=== PATIENT | female | born 1965 | race Caucasian/White ===

== ENCOUNTER 2020-01-06 13:29 | Day surgery (SDC) | payer OTHER ==
[2020-01-06] MEDS ORDERED: SODIUM CHLORIDE 0.9% 1000 ML INFUS.BAG IV ONE ×2 (13:35→14:49)
[2020-01-06] MEDS ORDERED: ONDANSETRON 4 MG/2 ML VIAL IVPUSH ONE (13:36)
[2020-01-06] MEDS ORDERED: KETOROLAC TROMETHAMINE 30 MG/1 ML VIAL IVPUSH ONE (13:36)
[2020-01-06] MEDS ORDERED: KETOROLAC TROMETHAMINE 30 MG/1 ML VIAL ONE (13:46)
[2020-01-06] MEDS ORDERED: ONDANSETRON 4 MG/2 ML VIAL ONE (13:46)
--- NOTE | 2020-01-06 13:50 | PDOC ---
History of Present Illness - General Chief Complaint: Back Pain Stated Complaint: BACK PAIN Time Seen by Provider: 01/06/20 13:33 - History of Present Illness Initial Comments: 01/06/20 13:52 54 yo F PMH recurrent kidney stones s/p parathyroidectomy, R oopherectomy 2/2 benign cyst, presenting with L flank pain. States that it began last night and has gotten progessively worse and sharper, now 10/10. Associated with two episodes of emesis today and ongoing nausea. Denies fevers/chills, urinary symptoms, CP, SOB, FIGUEROA. PCP is Dr. Allison. Past History - Past Medical History Allergies/Adverse Reactions: Allergies Allergy/AdvReac Type Severity Reaction Status Date / Time No Known Allergies Allergy Verified 01/06/20 13:32 Home Medications: Ambulatory Orders NK [No Known Home Medication] 01/06/20 COPD: No Kidney Stones: Yes - Psycho Social/Smoking Cessation Hx Smoking History: Never smoked Have you smoked in the past 12 months: No Information on smoking cessation initiated: No Hx Alcohol Use: No Review of Systems - Review of Systems Comments:: 01/06/20 15:19 GENERAL/CONSTITUTIONAL: denies fever, chills, diaphoresis, generalized weakness , malaise, loss of appetite, weight change HEAD, EYES, EARS, NOSE AND THROAT: denies rhinorrhea, nasal congestion, throat pain, throat swelling, difficulty swallowing, mouth swelling, ear pain, eye pain , visual changes NEUROLOGIC: denies headache, focal weakness or paresthesias, dizziness, unsteady gait, seizure, mental status changes, bladder or bowel incontinence CARDIOVASCULAR: denies chest pain, syncope, palpitations, irregular heart rate, lightheadedness, peripheral edema RESPIRATORY: denies cough, shortness of breath, dyspnea with exertion, orthopnea , wheezing, stridor, hemoptysis GASTROINTESTINAL: endorses LLQ abdominal pain, L flank pain, nausea with vomiting. Denies abdominal distension, diarrhea, constipation, melena, hematochezia GENITOURINARY: denies dysuria, frequency, urgency, hesitancy, hematuria, flank pain, genital pain MUSCULOSKELETAL: denies myalgia, arthralgia, joint swelling, back pain, neck pain SKIN: denies rash, itching, pallor HEMATOLOGIC/IMMUNOLOGIC: denies easy bleeding, easy bruising, lymphadenopathy, frequent infections ENDOCRINE: denies unexplained weight gain, unexplained weight loss, heat intolerance, cold intolerance PSYCHIATRIC: denies anxiety, depression, suicidal or homicidal ideation, hallucinations *Physical Exam - Vital Signs Last Vital Signs Temp Pulse Resp BP Pulse Ox 98.3 F 79 18 184/107 H 98 01/06/20 13:30 01/06/20 13:30 01/06/20 13:30 01/06/20 13:30 01/06/20 13:30 - Physical Exam 01/06/20 15:20 GENERAL: Awake, alert, and fully oriented, appears uncomfortable. HEAD: Normal with no signs of trauma. EYES: Pupils equal, round and reactive to light, extraocular movements intact, sclera anicteric, conjunctiva clear. No lid lag. EARS, NOSE, THROAT: Ears normal, nares patent, oropharynx clear without exudates. Dry mucous membranes. NECK: Normal range of motion, supple without lymphadenopathy or JVD LUNGS: Breath sounds equal, clear to auscultation bilaterally. No wheezes, and no crackles. No accessory muscle use. HEART: Regular rate and rhythm, normal S1 and S2 without murmur, rub or gallop. ABDOMEN: Soft, LLQ tenderness, non-distended, normoactive bowel sounds, negative guarding, negative rebound MUSCULOSKELETAL: Normal range of motion at all joints. No bony deformities or tenderness. L CVA tenderness. UPPER EXTREMITIES: 2+ pulses, warm, well-perfused. No cyanosis. No clubbing. Cap refill <2 seconds. No peripheral edema. LOWER EXTREMITIES: 2+ pulses, warm, well-perfused. No calf tenderness. No peripheral edema. NEUROLOGICAL: Cranial nerves II-XII intact. Normal speech. Normal gait. PSYCHIATRIC: Cooperative. Good eye contact. Appropriate mood and affect. SKIN: Warm, dry, normal turgor, no rashes or lesions noted. ED Treatment Course - LABORATORY CBC & Chemistry Diagram: 01/06/20 14:00 01/06/20 14:00 Medical Decision Making - Medical Decision Making 01/06/20 14:45 Concern for kidney stones vs UTI. - CBC, CMP - UA/UC/urine preg - CT abd/pelvis w/o contrast - 1L NS - toradol, Zofran 01/06/20 14:46 WBC 16.8, UA with 4+ ketones, 3+ blood, 1+ protein 01/06/20 14:48 CT with 5 X 8mm L proximal ureteral stone with mild to moderate hydronephrosis. Discussed patient with Dr. Overton from urology, recommends admitting patient to [facility] for stent tomorrow. 01/06/20 16:00 Pre-op EKG with normal sinus at 77 bpm. Discharge - Discharge Information Problems reviewed: Yes Clinical Impression/Diagnosis: Kidney stone on left side Condition: Stable - Admission Yes - Follow up/Referral - Patient Discharge Instructions - Post Discharge Activity
[2020-01-06 14:16] LABS: HEMATOCRIT 43.5 % (32.4-45.2); HEMOGLOBIN 14.6 GM/dl (10.7-15.3); MCH 30.5 pg (25.7-33.7); MCHC 33.6 g/dl (32.0-36.0); MEAN CELL VOLUME 90.7 fl (80-96); MEAN PLT VOLUME 9.6 fl (7.5-11.1); PLATELET COUNT 371 K/MM3 (134-434); WHITE BLOOD COUNT 16.8 K/mm3 (4.0-10.8)
[2020-01-06 14:26] LABS: ALBUMIN 4.1 g/dl (3.4-5.0); BILIRUBIN,TOTAL 0.6 mg/dl (0.2-1); POTASSIUM 3.5 mmol/L (3.5-5.1); TOT PROT 7.4 g/dl (6.4-8.2)
[2020-01-06 14:29] LABS: CALCIUM OXALATE CRYSTALS FEW /hpf (NONE SEEN); EPITHELIAL CELLS FEW /hpf
[2020-01-06 14:35] LABS: PLATELET ESTIMATE ADEQUATE
[2020-01-06] MEDS ORDERED: morphine CARPU-JECT 4 MG/1 ML DISP.SYRIN IVPUSH ONE (14:48)
[2020-01-06] MEDS ORDERED: morphine SULFATE 4 MG/ML VIAL ONE (14:49)
[2020-01-06 15:38] LABS: ACTIVATED PTT 29.9 SECONDS (25.2-36.5)
[2020-01-06 15:43] LABS: INR 1.3 (0.82-1.09); PROTHROMBIN TIME (PATIENT) 14.5 SEC (10.2-13.0)
--- NOTE | 2020-01-06 16:14 | HP ---
CHIEF COMPLAINT: Left flank pain PCP: Dr. Allison HISTORY OF PRESENT ILLNESS: 54 year-old female with a PMH significant for kidney stones presented to the ED with left flank pain which started the night before presentation. The pain was moderate at onset, patient able to sleep and went to work the next morning. The pain intensified and patient had several episodes of vomiting prompting her to come to the ED. Patient had 4 episodes of kidney stones five years ago and underwent parathyroidectomy. This is her first episode since. ER course was notable for: (1) BP 184/107 (2) WBC 16.8k, urine RBCs 20-40 (3) NS x 2L; ketorolac 30mg x 1; morphine 4mg x 1; Zofran 4mg x 1 Recent Travel: No PAST MEDICAL HISTORY: Kidney stones PAST SURGICAL HISTORY: Parathyroidectomy x 5 years Right oopherectomy x 15 years Social History: high school home economics teacher, lives in [place] Smoking: never Alcohol: no Drugs: no Family history: mother 78 with HTN; father 74 with HTN; 2 sisters a&w, no children Allergies No Known Allergies Allergy (Verified 01/06/20 13:32) HOME MEDICATIONS: Home Medications Medication Instructions Recorded NK [No Known Home Medication] 01/06/20 REVIEW OF SYSTEMS CONSTITUTIONAL: Absent: fever, chills, diaphoresis, generalized weakness, malaise, loss of appetite, weight change HEENT: Absent: rhinorrhea, nasal congestion, throat pain, throat swelling, difficulty swallowing, mouth swelling, ear pain, eye pain, visual changes CARDIOVASCULAR: Absent: chest pain, syncope, palpitations, irregular heart rate, lightheadedness , peripheral edema RESPIRATORY: Absent: cough, shortness of breath, dyspnea with exertion, orthopnea, wheezing, stridor, hemoptysis GASTROINTESTINAL: Absent: abdominal pain, abdominal distension, nausea, vomiting, diarrhea, constipation, melena, hematochezia GENITOURINARY: +left flank pain, nausea, vomiting Absent: dysuria, frequency, urgency, hesitancy, hematuria, genital pain MUSCULOSKELETAL: Absent: myalgia, arthralgia, joint swelling, back pain, neck pain SKIN: Absent: rash, itching, pallor HEMATOLOGIC/IMMUNOLOGIC: Absent: easy bleeding, easy bruising, lymphadenopathy, frequent infections ENDOCRINE: Absent: unexplained weight gain, unexplained weight loss, heat intolerance, cold intolerance NEUROLOGIC: Absent: headache, focal weakness or paresthesias, dizziness, unsteady gait, seizure, mental status changes, bladder or bowel incontinence PSYCHIATRIC: Absent: anxiety, depression, suicidal or homicidal ideation, hallucinations. PHYSICAL EXAMINATION Vital Signs - 24 hr 01/06/20 01/06/20 13:30 15:16 Temperature 98.3 F Pulse Rate 79 Pulse Rate [ 86 Left Apical] Respiratory 18 18 Rate Blood Pressure 184/107 H Blood Pressure 143/87 [Right Arm] O2 Sat by Pulse 98 99 Oximetry (%) GENERAL: Awake, alert, and fully oriented, in no acute distress. LUNGS: Breath sounds equal, clear to auscultation bilaterally. No wheezes, and no crackles. No accessory muscle use. HEART: Regular rate and rhythm, normal S1 and S2 ABDOMEN: Soft, nontender, not distended, normoactive bowel sounds UPPER EXTREMITIES: 2+ pulses, warm, well-perfused. No cyanosis. No clubbing. No peripheral edema. LOWER EXTREMITIES: 2+ pulses, warm, well-perfused. No calf tenderness. No peripheral edema. NEUROLOGICAL: Cranial nerves II-XII intact. Normal speech. Laboratory Results - last 24 hr 01/06/20 01/06/20 01/06/20 13:35 14:00 14:00 WBC 16.8 H RBC 4.80 Hgb 14.6 Hct 43.5 MCV 90.7 MCH 30.5 MCHC 33.6 RDW 12.0 Plt Count 371 MPV 9.6 Absolute Neuts (auto) 15.4 Neutrophils % No Result Required. Neutrophils % (Manual) 86.0 H Band Neutrophils % 4.0 Lymphocytes % No Result Required. Lymphocytes % (Manual) 7.0 L Monocytes % (Manual) 3 L Platelet Estimate Adequate PT with INR INR PTT (Actin FS) Sodium 135 L Potassium 3.5 Chloride 100 Carbon Dioxide 27 Anion Gap 8 BUN 13.0 Creatinine 1.0 Est GFR (CKD-EPI)AfAm 75.01 Est GFR (CKD-EPI)NonAf 64.72 Random Glucose 117 H Calcium 9.0 Total Bilirubin 0.6 AST 31 ALT 19 Alkaline Phosphatase 121 H Total Protein 7.4 Albumin 4.1 Urine Color Yellow Urine Appearance Clear Urine pH 7.0 Urine Protein 1+ H Urine Glucose (UA) Negative Urine Ketones 4+ H Urine Blood 3+ H Urine Nitrite Negative Urine Bilirubin Negative Urine Urobilinogen 0.2 Ur Leukocyte Esterase Negative Urine RBC 20-40 Urine WBC 0-2 Ur Transition Epith Cell Few Calcium Oxalate Crystal Few Urine Bacteria Few 01/06/20 15:10 WBC RBC Hgb Hct MCV MCH MCHC RDW Plt Count MPV Absolute Neuts (auto) Neutrophils % Neutrophils % (Manual) Band Neutrophils % Lymphocytes % Lymphocytes % (Manual) Monocytes % (Manual) Platelet Estimate PT with INR 14.5 H INR 1.30 H PTT (Actin FS) 29.9 Sodium Potassium Chloride Carbon Dioxide Anion Gap BUN Creatinine Est GFR (CKD-EPI)AfAm Est GFR (CKD-EPI)NonAf Random Glucose Calcium Total Bilirubin AST ALT Alkaline Phosphatase Total Protein Albumin Urine Color Urine Appearance Urine pH Urine Protein Urine Glucose (UA) Urine Ketones Urine Blood Urine Nitrite Urine Bilirubin Urine Urobilinogen Ur Leukocyte Esterase Urine RBC Urine WBC Ur Transition Epith Cell Calcium Oxalate Crystal Urine Bacteria ASSESSMENT/PLAN 54 year-old female with a PMH significant for kidney stones admitted for an obstructing left ureteral stone and hydronephrosis. Left ureteral obstructing caculi Left hydronephrosis --CTAP: 5 x 8 mm proximal left ureteral calculus with mild to moderate hydronephrosis --plan is to [place] tomorrow for stenting with Dr. Overton --afebrile, elevated WBC but UA negative, start empiric ceftriaxone --IV fluids, NPO Dispo: continues to require inpatient care. Visit type - Emergency Visit Emergency Visit: Yes ED Registration Date: 01/06/20 Care time: The patient presented to the Emergency Department on the above date and was hospitalized for further evaluation of their emergent condition. - New Patient This patient is new to me today: Yes Date on this admission: 01/07/20 - Critical Care Critical Care patient: No
--- NOTE | 2020-01-06 17:24 | CON.GU ---
Consult Consult Specialty:: Referred by:: Peter Reason for Consultation:: L ureteral calculus - History of Present Illness Chief Complaint: L flank pain History of Present Illness: 54 yo F PMH recurrent kidney stones s/p parathyroidectomy, R oopherectomy 2/2 benign cyst, presenting with L flank pain. States that it began last night and has gotten progessively worse and sharper, now 10/10. Associated with two episodes of emesis today and ongoing nausea. cons req. ER course was notable for: (1) BP 184/107 (2) WBC 16.8k, urine RBCs 20-40 (3) NS x 2L; ketorolac 30mg x 1; morphine 4mg x 1; Zofran 4mg x 1 - History Source History Provided By: Patient, Medical Record Limitations to Obtaining History: No Limitations - Past Medical History Renal/: Yes: Renal Calculi - Alcohol/Substance Use Hx Alcohol Use: No - Smoking History Smoking history: Never smoked Have you smoked in the past 12 months: No Home Medications - Allergies Allergies/Adverse Reactions: Allergies Allergy/AdvReac Type Severity Reaction Status Date / Time No Known Allergies Allergy Verified 01/06/20 13:32 - Home Medications Home Medications: Ambulatory Orders NK [No Known Home Medication] 01/06/20 Review of Systems - Review of Systems Gastrointestinal: reports: Nausea, Vomiting Genitourinary: reports: Flank Pain Physical Exam- Vital Signs: Vital Signs Temperature 97.8 F 01/06/20 17:06 Pulse Rate 80 01/06/20 17:06 Respiratory Rate 18 01/06/20 17:06 Blood Pressure 136/86 01/06/20 17:06 O2 Sat by Pulse Oximetry (%) 98 01/06/20 17:06 Renal/: Yes: CVA Tenderness - Left Labs: CBC, BMP 01/06/20 14:00 01/06/20 14:00 Imaging - Results Cat Scan: Report Reviewed Problem List - Problems (1) Ureteral calculus, left Assessment/Plan: rx tamsulosin 0.4 mg qd, strain urine, ivfs, analgesia, ur cx, iv rocephin, cysto L JJ stent insertion 01/07/20 Code(s): N20.1 - CALCULUS OF URETER (2) Hydronephrosis with renal and ureteral calculous obstruction Code(s): N13.2 - HYDRONEPHROSIS WITH RENAL AND URETERAL CALCULOUS OBSTRUCTION (3) Leukocytosis Code(s): D72.829 - ELEVATED WHITE BLOOD CELL COUNT, UNSPECIFIED
[2020-01-06 18:28] VITALS: BMI 28.3
[2020-01-06] MEDS: SODIUM CHLORIDE 1,000 ML IV SCH (18:56)
[2020-01-06] MEDS ORDERED: morphine CARPU-JECT 2 MG/1 ML DISP.SYRIN IVPUSH PRN (20:59)
[2020-01-06] MEDS: ACETAMINOPHEN 1000 MG/100 ML VIAL (NON FORMULARY) IVPB SCH (21:10)
[2020-01-07] MEDS: ACETAMINOPHEN 1000 MG/100 ML VIAL (NON FORMULARY) IVPB SCH ×3 (03:54→17:56)
[2020-01-07 07:49] LABS: BASO % 0.3 % (0-2.0); EOS % 0.1 % (0-4.5); HEMATOCRIT 37.9 % (32.4-45.2); HEMOGLOBIN 13.2 GM/dl (10.7-15.3); MCH 31.7 pg (25.7-33.7); MCHC 34.7 g/dl (32.0-36.0); MEAN CELL VOLUME 91.2 fl (80-96); MEAN PLT VOLUME 10.1 fl (7.5-11.1); MONO % 10.3 % (3.8-10.2); NEUT % 71.3 % (42.8-82.8); PLATELET COUNT 327 K/MM3 (134-434); RBC 4.16 M/mm3 (3.60-5.2); RDW 12.5 % (11.6-15.6); WHITE BLOOD COUNT 14.8 K/mm3 (4.0-10.8)
[2020-01-07 07:50] LABS: ALBUMIN 3.2 g/dl (3.4-5.0); BILIRUBIN,TOTAL 0.9 mg/dl (0.2-1); CALCIUM 8.8 mg/dl (8.5-10); CREATININE 1.1 mg/dl (0.55-1.3); MAGNESIUM 1.6 mg/dL (1.8-2.4); POTASSIUM 3.7 mmol/L (3.5-5.1); TOT PROT 5.9 g/dl (6.4-8.2)
[2020-01-07] MEDS: TAMSULOSIN HCL 0.4 MG CAP PO SCH (08:05)
[2020-01-07] MEDS ORDERED: MAGNESIUM SULF 50% (8.12 MEQ/2 ML-1 GM VIAL) IVPB ONE (09:30)
[2020-01-07] MEDS ORDERED: CEFTRIAXONE 1 G/50 ML PREMIX 50 ML IVPB SCH (10:00)
--- NOTE | 2020-01-07 11:29 | EKG ---
Test Reason : Blood Pressure : / mmHG Vent. Rate : 077 BPM Atrial Rate : 077 BPM P-R Int : 126 ms QRS Dur : 074 ms QT Int : 412 ms P-R-T Axes : 068 071 055 degrees QTc Int : 466 ms NORMAL SINUS RHYTHM LEFT ATRIAL ENLARGEMENT BORDERLINE ECG NO PREVIOUS ECGS AVAILABLE Confirmed by MD ROMAIN, LAUREN ([id number]) on 01/07/2020 11:29:16 AM Referred By: DR HEMPHILL Confirmed By:LAUREN HOYOS MD
[2020-01-07] MEDS ORDERED: MIDAZOLAM HCL 2 MG/2 ML SINGLE DOSE VIAL ONE (12:39)
[2020-01-07] MEDS ORDERED: PROPOFOL 20 ML ONE (12:39)
--- NOTE | 2020-01-07 13:11 | PN ---
Physical Exam: SUBJECTIVE: Patient seen and examined OBJECTIVE: Vital Signs Period Temp Pulse Resp BP Sys/Taveras Pulse Ox Last 24 Hr 97.8 F-98.6 F 79-86 18-19 124-184/66-107 97-99 GENERAL: The patient is awake, alert, and fully oriented, in no acute distress. HEAD: Normal with no signs of trauma. EYES: PERRL, extraocular movements intact, sclera anicteric, conjunctiva clear. No ptosis. ENT: Ears normal, nares patent, oropharynx clear without exudates, moist mucous membranes. NECK: Trachea midline, full range of motion, supple. LUNGS: Breath sounds equal, clear to auscultation bilaterally, no wheezes, no crackles, no accessory muscle use. HEART: Regular rate and rhythm, S1, S2 without murmur, rub or gallop. ABDOMEN: Soft, nontender, nondistended, normoactive bowel sounds, no guarding, no rebound, no hepatosplenomegaly, no masses. EXTREMITIES: 2+ pulses, warm, well-perfused, no edema. NEUROLOGICAL: Cranial nerves II through XII grossly intact. Normal speech, gait not observed. PSYCH: Normal mood, normal affect. SKIN: Warm, dry, normal turgor, no rashes or lesions noted Laboratory Results - last 24 hr 01/06/20 01/06/20 01/06/20 13:35 14:00 14:00 WBC 16.8 H RBC 4.80 Hgb 14.6 Hct 43.5 MCV 90.7 MCH 30.5 MCHC 33.6 RDW 12.0 Plt Count 371 MPV 9.6 Absolute Neuts (auto) 15.4 Neutrophils % No Result Required. Neutrophils % (Manual) 86.0 H Band Neutrophils % 4.0 Lymphocytes % No Result Required. Lymphocytes % (Manual) 7.0 L Monocytes % Monocytes % (Manual) 3 L Eosinophils % Basophils % Platelet Estimate Adequate PT with INR INR PTT (Actin FS) Sodium 135 L Potassium 3.5 Chloride 100 Carbon Dioxide 27 Anion Gap 8 BUN 13.0 Creatinine 1.0 Est GFR (CKD-EPI)AfAm 75.01 Est GFR (CKD-EPI)NonAf 64.72 Random Glucose 117 H Calcium 9.0 Magnesium Total Bilirubin 0.6 AST 31 ALT 19 Alkaline Phosphatase 121 H Total Protein 7.4 Albumin 4.1 Urine Color Yellow Urine Appearance Clear Urine pH 7.0 Urine Protein 1+ H Urine Glucose (UA) Negative Urine Ketones 4+ H Urine Blood 3+ H Urine Nitrite Negative Urine Bilirubin Negative Urine Urobilinogen 0.2 Ur Leukocyte Esterase Negative Urine RBC 20-40 Urine WBC 0-2 Ur Transition Epith Cell Few Calcium Oxalate Crystal Few Urine Bacteria Few Blood Type Antibody Screen 01/06/20 01/06/20 01/06/20 15:10 15:10 15:20 WBC RBC Hgb Hct MCV MCH MCHC RDW Plt Count MPV Absolute Neuts (auto) Neutrophils % Neutrophils % (Manual) Band Neutrophils % Lymphocytes % Lymphocytes % (Manual) Monocytes % Monocytes % (Manual) Eosinophils % Basophils % Platelet Estimate PT with INR 14.5 H INR 1.30 H PTT (Actin FS) 29.9 Sodium Potassium Chloride Carbon Dioxide Anion Gap BUN Creatinine Est GFR (CKD-EPI)AfAm Est GFR (CKD-EPI)NonAf Random Glucose Calcium Magnesium Total Bilirubin AST ALT Alkaline Phosphatase Total Protein Albumin Urine Color Urine Appearance Urine pH Urine Protein Urine Glucose (UA) Urine Ketones Urine Blood Urine Nitrite Urine Bilirubin Urine Urobilinogen Ur Leukocyte Esterase Urine RBC Urine WBC Ur Transition Epith Cell Calcium Oxalate Crystal Urine Bacteria Blood Type O POSITIVE O POSITIVE Antibody Screen Negative 01/07/20 01/07/20 06:50 06:50 WBC 14.8 H RBC 4.16 Hgb 13.2 Hct 37.9 MCV 91.2 MCH 31.7 MCHC 34.7 RDW 12.5 Plt Count 327 MPV 10.1 Absolute Neuts (auto) 10.6 Neutrophils % 71.3 Neutrophils % (Manual) Band Neutrophils % Lymphocytes % 18.0 Lymphocytes % (Manual) Monocytes % 10.3 H Monocytes % (Manual) Eosinophils % 0.1 Basophils % 0.3 Platelet Estimate PT with INR INR PTT (Actin FS) Sodium 137 Potassium 3.7 Chloride 104 Carbon Dioxide 25 Anion Gap 8 BUN 13.0 Creatinine 1.1 Est GFR (CKD-EPI)AfAm 66.85 Est GFR (CKD-EPI)NonAf 57.68 Random Glucose 102 Calcium 8.8 Magnesium 1.6 L Total Bilirubin 0.9 AST 27 ALT 14 Alkaline Phosphatase 97 D Total Protein 5.9 L Albumin 3.2 L Urine Color Urine Appearance Urine pH Urine Protein Urine Glucose (UA) Urine Ketones Urine Blood Urine Nitrite Urine Bilirubin Urine Urobilinogen Ur Leukocyte Esterase Urine RBC Urine WBC Ur Transition Epith Cell Calcium Oxalate Crystal Urine Bacteria Blood Type Antibody Screen Active Medications Generic Name Dose Route Start Last Admin Trade Name Freq PRN Reason Stop Dose Admin Acetaminophen 1,000 mg 01/06/20 21:00 01/07/20 10:27 Ofirmev Injection - IVPB 01/07/20 15:01 1,000 mg Q6H ALICE Administration Sodium Chloride 1,000 mls @ 100 mls/hr 01/06/20 17:45 01/06/20 18:56 Normal Saline - IV 100 mls/hr ASDIR ALICE Administration Ceftriaxone Sodium 50 mls @ 100 mls/hr 01/07/20 10:00 01/07/20 09:00 Ceftriaxone 1 Gm-D5w Bag IVPB 100 mls/hr DAILY ALICE Administration Protocol Morphine Sulfate 2 mg 01/06/20 20:59 01/07/20 00:19 Morphine Injection - IVPUSH 2 mg Q4H PRN Administration PAIN LEVEL 7 - 10 Tamsulosin HCl 0.4 mg 01/07/20 08:30 01/07/20 08:05 Flomax - PO 0.4 mg DAILY@0830 ALICE Administration ASSESSMENT/PLAN: 54 year-old female with a PMH significant for kidney stones admitted for an obstructing left ureteral stone and hydronephrosis. Left ureteral obstructing caculi Left hydronephrosis --CTAP: 5 x 8 mm proximal left ureteral calculus with mild to moderate hydronephrosis --plan is to [place] today for stenting with Dr. Overton --continue empiric ceftriaxone --IV fluids, NPO Dispo: continues to require inpatient care. Visit type - Emergency Visit Emergency Visit: Yes ED Registration Date: 01/06/20 Care time: The patient presented to the Emergency Department on the above date and was hospitalized for further evaluation of their emergent condition. - New Patient This patient is new to me today: No - Critical Care Critical Care patient: No
[2020-01-07] MEDS ORDERED: SUCCINYLCHOLINE CHLORIDE 200 MG/10 ML SYRINGE ONE (13:36)
[2020-01-07] MEDS ORDERED: ROCURONIUM BROMIDE 50 MG/5 ML SYRINGE ONE (13:36)
--- NOTE | 2020-01-07 14:02 | OP ---
Operative Note - Note: Operative Date: 01/07/20 Pre-Operative Diagnosis: L ureteral calculus Operation: cystoscopy L JJ stent insertion Findings: L mid ureteral calculus Post-Operative Diagnosis: Same as Pre-op Surgeon: Wali Overton Anesthesiologist/SANITARY ENGINEERING TEACHER: Dony Burks Anesthesia: General Estimated Blood Loss (mls): 0 Drains & Tubes with Location: 6 fr 24 cm L JJ stent
[2020-01-07] MEDS ORDERED: LACTATED RINGERS SOLUTION 1,000 ML IV SCH (14:15)
[2020-01-07] MEDS ORDERED: ONDANSETRON 4 MG/2 ML VIAL IVPUSH PRN (14:15)
[2020-01-07] MEDS ORDERED: KETOROLAC TROMETHAMINE 30 MG/1 ML VIAL ONE (14:18)
[2020-01-07] MEDS ORDERED: DEXAMETHASONE SOD PHOSPHATE 4 MG/1 ML VIAL ONE (14:18)
[2020-01-07] MEDS ORDERED: ONDANSETRON 4 MG/2 ML VIAL ONE (14:18)
--- NOTE | 2020-01-07 15:04 | DS ---
Physical Exam: SUBJECTIVE: Patient seen and examined OBJECTIVE: Vital Signs Period Temp Pulse Resp BP Sys/Taveras Pulse Ox Last 24 Hr 97.8 F-99.4 F 78-90 16-19 124-155/66-87 97-99 PHYSICAL EXAM GENERAL: The patient is awake, alert, and fully oriented, in no acute distress. HEAD: Normal with no signs of trauma. EYES: PERRL, extraocular movements intact, sclera anicteric, conjunctiva clear. ENT: Ears normal, nares patent, oropharynx clear without exudates, moist mucous membranes. NECK: Trachea midline, full range of motion, supple. LUNGS: Breath sounds equal, clear to auscultation bilaterally, no wheezes, no crackles, no accessory muscle use. HEART: Regular rate and rhythm, S1, S2 without murmur, rub or gallop. ABDOMEN: Soft, nontender, nondistended, normoactive bowel sounds, no guarding, no rebound, no hepatosplenomegaly, no masses. EXTREMITIES: 2+ pulses, warm, well-perfused, no edema. NEUROLOGICAL: Cranial nerves II through XII grossly intact. Normal speech, gait not observed. PSYCH: Normal mood, normal affect. SKIN: Warm, dry, normal turgor, no rashes or lesions noted. LABS Laboratory Results - last 24 hr 01/06/20 01/06/20 01/06/20 15:10 15:10 15:20 WBC RBC Hgb Hct MCV MCH MCHC RDW Plt Count MPV Absolute Neuts (auto) Neutrophils % Lymphocytes % Monocytes % Eosinophils % Basophils % PT with INR 14.5 H INR 1.30 H PTT (Actin FS) 29.9 Sodium Potassium Chloride Carbon Dioxide Anion Gap BUN Creatinine Est GFR (CKD-EPI)AfAm Est GFR (CKD-EPI)NonAf Random Glucose Calcium Magnesium Total Bilirubin AST ALT Alkaline Phosphatase Total Protein Albumin Urine HCG, Qual Blood Type O POSITIVE O POSITIVE Antibody Screen Negative 01/07/20 01/07/20 01/07/20 06:50 06:50 13:40 WBC 14.8 H RBC 4.16 Hgb 13.2 Hct 37.9 MCV 91.2 MCH 31.7 MCHC 34.7 RDW 12.5 Plt Count 327 MPV 10.1 Absolute Neuts (auto) 10.6 Neutrophils % 71.3 Lymphocytes % 18.0 Monocytes % 10.3 H Eosinophils % 0.1 Basophils % 0.3 PT with INR INR PTT (Actin FS) Sodium 137 Potassium 3.7 Chloride 104 Carbon Dioxide 25 Anion Gap 8 BUN 13.0 Creatinine 1.1 Est GFR (CKD-EPI)AfAm 66.85 Est GFR (CKD-EPI)NonAf 57.68 Random Glucose 102 Calcium 8.8 Magnesium 1.6 L Total Bilirubin 0.9 AST 27 ALT 14 Alkaline Phosphatase 97 D Total Protein 5.9 L Albumin 3.2 L Urine HCG, Qual Negative Blood Type Antibody Screen HOSPITAL COURSE: Date of Admission:01/06/20 Date of Discharge: 01/07/20 Discharge Summary Problems reviewed: Yes Reason For Visit: CALCULUS OF LEFT KIDNEY Current Active Problems Hydronephrosis with renal and ureteral calculous obstruction (Acute) Kidney stone on left side (Acute) Leukocytosis (Acute) Ureteral calculus, left (Acute) Condition: Stable - Instructions - Home Medications Comprehensive Discharge Medication List: Ambulatory Orders Claritin 10 mg PO DAILY 01/06/20 Multivitamin 1 tab PO DAILY 01/06/20
--- NOTE | 2020-01-07 15:22 | OP ---
DATE OF OPERATION: 01/07/2020 PREOPERATIVE DIAGNOSIS: Left ureteral calculus. POSTOPERATIVE DIAGNOSIS: Left ureteral calculus. PROCEDURES: Cystoscopy, left double-J stent insertion. SURGEON: Wali Mccoy MD ANALYTICAL LABORATORY TECHNICIAN: None. ANESTHESIA: General via laryngeal mask. ANESTHESIOLOGIST: Dony Burks MD SPECIMENS: None. CULTURES: None. DRAINS: A 6-Guinean, 24-cm left double-J stent. ESTIMATED BLOOD LOSS: None. COMPLICATIONS: None. Procedure was as follows. Patient was brought in the operating room and placed on the operating room table in the supine position. After the administration of intravenous antibiotics on the floor, patient was placed in the dorsal lithotomy position. The vagina and perineum were prepped and draped in the usual sterile manner. A 22-Guinean cystoscope was inserted into the bladder with the obturator in place, where the obturator was removed, and urine was evacuated. A 30-degree telescope was inserted and cystoscopy was performed. This demonstrated no foreign bodies, tumors, stones or inflammation. Both ureteral orifices were in their usual location with clear efflux bilaterally. Left urine output was cannulated with a 0.038 guide wire, which was advanced to the level of the left renal pelvis under fluoroscopic and direct visual guidance. Dual-lumen catheter was inserted. Retrograde pyelogram was done. Demonstrated a radiolucent left midureteral calculus approximately 8 mm. There was mild left hydronephrosis, as well. The dual-lumen catheter was removed, and a 6-Guinean, 24-cm left JJ stent was inserted over the guide wire under direct visual and fluoroscopic guidance, leaving one coil in the renal pelvis and one coil in the renal bladder. The bladder was emptied. Cystoscope removed. She tolerated the procedure well. Transferred to the recovery room in stable condition. She will be followed up in the office to schedule left ureteroscopic laser lithotripsy, double-J stent exchange. WALI MCCOY M.D. MATILDE/[id number]
[2020-01-07] MEDS: SODIUM CHLORIDE 1,000 ML IV SCH (17:57)
[2020-01-07] MEDS: ACETAMINOPHEN 325 MG TABLET (FP) PO PRN (23:58)
--- NOTE | 2020-01-08 07:15 | DS ---
Physical Exam: SUBJECTIVE: Patient seen and examined 54 year-old female with a PMH significant for kidney stones admitted for an obstructing left ureteral stone and hydronephrosis. Operation: S/P cystoscopy L JJ stent insertion POD#1 OBJECTIVE: Vital Signs Period Temp Pulse Resp BP Sys/Taveras Pulse Ox Last 24 Hr 97.7 F-99.4 F 68-90 16-19 138-167/74-89 96-99 PHYSICAL EXAM GENERAL: The patient is awake, alert, and fully oriented, in no acute distress. HEAD: Normal with no signs of trauma. EYES: PERRL, extraocular movements intact, sclera anicteric, conjunctiva clear. ENT: Ears normal, nares patent, oropharynx clear without exudates, moist mucous membranes. NECK: Trachea midline, full range of motion, supple. LUNGS: Breath sounds equal, clear to auscultation bilaterally, no wheezes, no crackles, no accessory muscle use. HEART: Regular rate and rhythm, S1, S2 without murmur, rub or gallop. ABDOMEN: Soft, nontender, nondistended, normoactive bowel sounds, no guarding, no rebound, no hepatosplenomegaly, no masses. EXTREMITIES: 2+ pulses, warm, well-perfused, no edema. NEUROLOGICAL: Cranial nerves II through XII grossly intact. Normal speech, gait not observed. PSYCH: Normal mood, normal affect. SKIN: Warm, dry, normal turgor, no rashes or lesions noted. LABS Laboratory Results - last 24 hr 01/07/20 01/07/20 01/07/20 06:50 06:50 13:40 WBC 14.8 H RBC 4.16 Hct 37.9 MCV 91.2 MCH 31.7 MCHC 34.7 RDW 12.5 Plt Count 327 MPV 10.1 Absolute Neuts (auto) 10.6 Neutrophils % 71.3 Lymphocytes % 18.0 Monocytes % 10.3 H Eosinophils % 0.1 Basophils % 0.3 Sodium 137 Potassium 3.7 Chloride 104 Carbon Dioxide 25 Anion Gap 8 BUN 13.0 Creatinine 1.1 Est GFR (CKD-EPI)AfAm 66.85 Est GFR (CKD-EPI)NonAf 57.68 Random Glucose 102 Calcium 8.8 Magnesium 1.6 L Total Bilirubin 0.9 AST 27 ALT 14 Alkaline Phosphatase 97 D Total Protein 5.9 L Albumin 3.2 L Urine HCG, Qual Negative HOSPITAL COURSE: Date of Admission:01/07/20 Date of Discharge: 01/08/20 54 year-old female with a PMH significant for kidney stones admitted for an obstructing left ureteral stone and hydronephrosis. --CTAP: 5 x 8 mm proximal left ureteral calculus with mild to moderate hydronephrosis -- S/P cystoscopy L JJ stent insertion POD#1, no intraop comps --afebrile, elevated WBC but UA negative, treated with empiric ceftriaxone --IVF overnight, tolerating regular diet --stable for discharge to home with follow up with Dr Overton Minutes to complete discharge: 35 Discharge Summary Problems reviewed: Yes Reason For Visit: CALCULUS OF LEFT KIDNEY Current Active Problems Hydronephrosis with renal and ureteral calculous obstruction (Acute) Kidney stone on left side (Acute) Leukocytosis (Acute) Ureteral calculus, left (Acute) Hospital Course: HOSPITAL COURSE: Date of Admission:01/07/20 Date of Discharge: 01/08/20 54 year-old female with a PMH significant for kidney stones admitted for an obstructing left ureteral stone and hydronephrosis. --CTAP: 5 x 8 mm proximal left ureteral calculus with mild to moderate hydronephrosis -- S/P cystoscopy L JJ stent insertion POD#1, no intraop comps --afebrile, elevated WBC but UA negative, treated with empiric ceftriaxone --IVF overnight, tolerating regular diet --stable for discharge to home with follow up with Dr Overton - Instructions Diet, Activity, Other Instructions: DISCHARGE YOUR VISIT You came to the hospital because you have pain in you side and were found to have kidney stone. Dr Overton removed the stone and a stent was placed. Call Dr Overton (number attached) for a follow up appointment to possibly remove stent MEDICATIONS Please continue to take your home medications as prescribed. There was no changes. NEW Flomax (tamsulosin) daily DIET * continue home diet * Maintain good hydration * No Aspirin * Encourage ambulation Continue your home diet ADDITIONAL CARE Please make an appointment to see Dr Overton for possible stent removal ADDITIONAL INFORMATION Please call 911 or come directly to the emergency department if you experience unusual headache, vision change, shortness of breath, chest pain, numbness, tingling, loss of alertness/awareness, loss of function, unusual bleeding or any alarming symptoms. Thank you for allowing me to care for you. Shaun Rosenberg, ACNP, [facility] [phone] Referrals: Wali Overton MD [Staff Physician] - - Home Medications Comprehensive Discharge Medication List: Ambulatory Orders Claritin 10 mg PO DAILY 01/06/20 Multivitamin 1 tab PO DAILY 01/06/20 Prescription Drug Monitoring Program (I-STOP) results: I-STOP not reviewed Problem List - Problems (1) Prophylactic measure Assessment/Plan: FEN Fluids: adequate PO intake Electrolytes: stable Nutrition: tolerating diet DVT ambulating Dispo discharge to [place], me without services Code(s): Z29.9 - ENCOUNTER FOR PROPHYLACTIC MEASURES, UNSPECIFIED (2) Leukocytosis Assessment/Plan: resolving afebrile completed course of post op abx Code(s): D72.829 - ELEVATED WHITE BLOOD CELL COUNT, UNSPECIFIED (3) Ureteral calculus, left Code(s): N20.1 - CALCULUS OF URETER This patient is new to me today: Yes Date on this admission: 01/08/20 Emergency Visit: Yes Care time: The patient presented to the Emergency Department on the above date and was hospitalized for further evaluation of their emergent condition. Critical Care patient: No - Discharge Referral Referred to [facility] Med P.C.: No
[2020-01-08] MEDS: ACETAMINOPHEN 325 MG TABLET (FP) PO PRN (07:20)
--- NOTE | 2020-01-08 07:51 | PN ---
Progress Note (short form) - Note Progress Note: Post op day#1.S/p Cystoscpy with left ureteral stent placement under [place] uneventful.Patient stable.No any anesthesia related problem.Patient DC from the anesthesia care.
[2020-01-08 08:04] LABS: ALBUMIN 3.4 g/dl (3.4-5.0); BILIRUBIN,TOTAL 0.5 mg/dl (0.2-1); CREATININE 0.9 mg/dl (0.55-1.3); POTASSIUM 3.6 mmol/L (3.5-5.1); TOT PROT 6.5 g/dl (6.4-8.2)
[2020-01-08 08:13] LABS: BASO % 0.3 % (0-2.0); HEMATOCRIT 40.4 % (32.4-45.2); HEMOGLOBIN 13.7 GM/dl (10.7-15.3); LYMPH % 14.7 % (8-40); MEAN CELL VOLUME 91.3 fl (80-96); MEAN PLT VOLUME 9.9 fl (7.5-11.1); MONO % 6.7 % (3.8-10.2); NEUT % 78.3 % (42.8-82.8); PLATELET COUNT 347 K/MM3 (134-434); RBC 4.43 M/mm3 (3.60-5.2); RDW 12.3 % (11.6-15.6); WHITE BLOOD COUNT 14.6 K/mm3 (4.0-10.8)
[2020-01-08] MEDS: TAMSULOSIN HCL 0.4 MG CAP PO SCH (09:20)
[2020-01-08 09:51] VITALS: BP 147/81; PULSE 73; TEMP 98
== END 2020-01-08 11:24 | disposition home or self-care (01) ==
LOC: FER 13:29 → FM/S 15:09 → UNDOADMIN 15:09 → FM/S 17:30 → FASUSAT 01-07 15:07 → FM/S 01-07 15:07 → SUATTDRO 01-07 15:07 → FASUSAT 01-08 11:24
PROVIDERS: ATTEND Nurse Practitioner Acute Care
PROC: 0T9780Z Drainage of Left Ureter with Drainage Device, Via Natural or Artificial Opening Endoscopic (ICD-10-PCS; principal; 2020-01-07 14:00)
DX: N13.2 Hydronephrosis with renal and ureteral calculous obstruction (principal); D72.829 Elevated white blood cell count, unspecified
CPT/HCPCS: 36415; 71045-TC-FY; 74018-TC-FY; 74176-TC; 76000-TC-FY; 80053; 81003; 81015; 83735; 84703; 85025; 85610; 85730; 86850; 86900; 86901; 93005; 94760; 99285-25; J0131; J7030

== ENCOUNTER 2020-01-18 21:37 | Emergency (ER) | payer OTHER ==
[2020-01-18 21:54] VITALS: BMI 26.5
--- NOTE | 2020-01-18 22:26 | PDOC ---
Attending Attestation - Resident Resident Name: Edilia Ozuna - ED Attending Attestation I have performed the following: I have examined & evaluated the patient, The case was reviewed & discussed with the resident, I agree w/resident's findings & plan, Exceptions are as noted - HPI HPI: 01/18/20 22:24 This 54 yo female was diagnosed with a 5 mm x 8 mm stone in the left UVJ on January 06 and then had a left ureteral stent placed the following day. She went back to her lump room supervisor last Sunday and had a stent removed. Today she developed some nausea and pain and called her urologist who wanted her to have her urine tested to see if there was a UTI
[2020-01-18] MEDS ORDERED: SODIUM CHLORIDE 1,000 ML IV STA (22:29)
[2020-01-18] MEDS ORDERED: KETOROLAC TROMETHAMINE 30 MG/1 ML VIAL IVPUSH ONE (22:30)
--- NOTE | 2020-01-18 22:33 | PDOC ---
History of Present Illness - General Chief Complaint: Pain, Acute Stated Complaint: ABD PAIN Time Seen by Provider: 01/18/20 22:17 - History of Present Illness Initial Comments: 01/18/20 22:34 54 yo F with PMH of recurrent nephrolithiasis s/p single parathyroidectomy 5 years ago , R oopherectomy 2/2 benign cyst, presenting with L flank pain. Pain is sharp, 8/10, non radiating and associated nausea.Pt recently had left calcium kidney stone removal in early december with L ureteral stent placement. On Sunday01/12/20, pt had ureteral stent removed but also found to have another stone forming. As the size was significantly smaller, her Urologist Dr Overton explained that she should drink plenty of fluid and to continue flomax so the stone can pass on its own. He also started her on bactrim for infection; pt is on day 6 of day 7. Pt denies fever, chills, vomiting, chest pain, SOB, urinary retention or dysuria. Pt has f/u appointment in a month with Dr Overton PMH: as above PSH: as above Social : denies ROS: Constitutional: no fever,no chills HEENT: no throat pain, no dysphagia Cardiovascular: no chest pain, no palpitations Respiratory: no cough, no shortness of breath Gastrointestinal: Nausea but no vomiting Genitourinary: frequency but no urgency no dysuria Musculoskeletal: no myalgia, no arthralgia Skin: no bruising Neurologic: no weakness Psych: no agitation, no anxiety PE: VSS GEN: NAD Neuro: CN 2-12 intact, motor strength 5/5 in all muscle groups, sensation intact throughout, 2+ reflexes in U&L extremities, gait normal HEENT: PERRLA, moist membrane, clear conjunctiva NECK: no JVD CHEST:vesicular breath sounds b/l no wheezing, no rales appreciated HEART:RRR, no murmur, rubs or gallop ABDOMEN: + BS, soft, left flank tenderness Extremities: 2+ pulses, no edema SKIN: no bruises MSK: no arthralgia, no joint tenderness assessment: given hx of stones recent findings by her urologist, pt most likely has recurrent stone that has yet passed vs UTI plan: UA, urine culture, 1L NS, toradol 30mg IV, zofran for nausea 01/18/20 22:46 UA negative given 6/7 day of bactrim 01/18/20 22:52 Pt has a history of nephrolithiasis, symptoms consistent with recurrent stone, pt informed last week sunday of presence of recurrent stone that needs to be passed. Pt is none toxic appearing, has a negative UA, pt on day 6/7 of bactrim. mostly need pain control and fluids. then reassess Pt can be discharged with fluids as well as toradol 10mg PO q6h for 5 days for pain control and sublingual zofran for the nausea. Strict return instruction for worsening pain, urinary retention, fever/chills, bloody urine, SOB or chest pain 01/18/20 23:39 Past History - Past Medical History Allergies/Adverse Reactions: Allergies Allergy/AdvReac Type Severity Reaction Status Date / Time No Known Allergies Allergy Verified 01/18/20 21:51 Home Medications: Ambulatory Orders Claritin 10 mg PO DAILY 01/06/20 Multivitamin 1 tab PO DAILY 01/06/20 Acetaminophen [Tylenol .Regular Strength -] 650 mg PO Q6H PRN tablet 01/08/20 Tamsulosin HCl [Flomax -] 0.4 mg PO DAILY@0830 #30 cap.er.24h 01/08/20 Ketorolac Tromethamine [Toradol] 10 mg PO Q6H #20 tablet 01/18/20 Ondansetron [Zofran *Odt*] 4 mg SL TID #21 od.tablet 01/18/20 Anemia: No Asthma: No Cancer: No Cardiac Disorders: No CVA: No COPD: No CHF: No Dementia: No Diabetes: No GI Disorders: No Disorders: Yes (KIDNEY STONES) HTN: No Hypercholesterolemia: No Kidney Stones: Yes Liver Disease: No Seizures: No Thyroid Disease: No - Surgical History Abdominal Surgery: No Appendectomy: No Cardiac Surgery: No Cholecystectomy: No Lung Surgery: No Neurologic Surgery: No - Immunization History Immunization Up to Date: Yes - Psycho Social/Smoking Cessation Hx Smoking History: Never smoked Have you smoked in the past 12 months: No Hx Alcohol Use: No Drug/Substance Use Hx: No Substance Use Type: None Hx Substance Use Treatment: No Review of Systems - Review of Systems Constitutional: No: Chills, Fever, Unexplained wgt Loss HEENTM: No: Recent change in vision Respiratory: No: Cough, Shortness of Breath Cardiac (ROS): No: Chest Pain, Palpitations ABD/GI: Yes: Nausea. No: Vomiting : Yes: Frequency. No: Burning, Dysuria, Discharge, Hematuria, Urgency Musculoskeletal: Yes: Back Pain Integumentary: No: Change in Color Neurological: No: Headache Psychiatric: No: Change in Appetite Endocrine: No: Change in Weight Hematologic/Lymphatic: No: Easy Bleeding *Physical Exam - Vital Signs Last Vital Signs Temp Pulse Resp BP Pulse Ox 98.0 F 76 20 168/89 98 01/18/20 21:51 01/18/20 21:51 01/18/20 21:51 01/18/20 21:51 01/18/20 21:51 Medical Decision Making - Medical Decision Making Pt has a history of nephrolithiasis, symptoms consistent with recurrent stone, pt informed last week sunday of presence of recurrent stone that needs to be passed. Pt is none toxic appearing, has a negative UA, pt on day 6/7 of bactrim. mostly need pain control and fluids. then reassess Pt can be discharged with fluids as well as toradol 10mg PO q6h for 5 days for pain control and sublingual zofran for the nausea. Strict return instruction for worsening pain, urinary retention, fever/chills, bloody urine, SOB or chest pain Discharge - Discharge Information Problems reviewed: Yes Clinical Impression/Diagnosis: Flank pain with history of urolithiasis, Kidney stone on left side Condition: Stable Disposition: HOME - Admission No - Additional Discharge Information Prescriptions: Ketorolac Tromethamine [Toradol] 10 mg PO Q6H #20 tablet Ondansetron [Zofran *Odt*] 4 mg SL TID #21 od.tablet - Follow up/Referral Referrals: Wali Overton MD [Staff Physician] - Call tomorrow () - Patient Discharge Instructions Patient Printed Discharge Instructions: DI for Kidney Stones Additional Instructions: You came to the ED because of pain in your left flank. You were recently told by your urologist that you have another kidney stone that can pass on its own with adequate hydration and time. Your pain is most likely due to the stone. Your pain will wax and wane until you pass the stone. I will send you home with 5 days worth of pain medication as well as some nausea medication with instruction below. Please call your urologist tomorrow to inform him that you do not have a urinary tract infection and also to assess the need to move up your appointment. Please take toradol 4 times a day for the next 5 days for pain control also please take sublingual zofran 3 to 4 times a day for your nausea If you begin to experience worsening pain, urinary retention, fever/chills, b loody urine, SOB or chest pain please return to the emergency room immediately. - Post Discharge Activity Work/Back to School Note: Back to Work
--- NOTE | 2020-01-18 22:34 | PDOC ---
Documentation entered by Kandis Tobias SCRIBE, acting as scribe for Chio Richter MD. Chio Richter MD: This documentation has been prepared by the unaibe, Kandis Tobias SCRIBE, under my direction and personally reviewed by me in its entirety. I confirm that the documentation accurately reflects all work, treatment, procedures, and medical decision making performed by me. Attending Attestation - Resident Resident Name: LaithEdilia - ED Attending Attestation I have performed the following: I have examined & evaluated the patient, The case was reviewed & discussed with the resident, I agree w/resident's findings & plan, Exceptions are as noted - HPI HPI: 01/18/20 22:43 The patient is a 54-year-old female with a past medical history significant for Kidney stones, and s/p left ureteral stent (on 01/[address] Overton) who presents to the emergency department with nausea and pain. The patient was diagnosed with 5x8mm Kidney stones in the left UVJ on 01/06. On 01/07, the patient had a ureteral stent placed by Dr. Overton, which was removed on Sunday, and discharged home with Bactrim. The patient presents with pain and nausea. The patient reports she called her urologist, who sent the patient to the ER for further management. - Physicial Exam PE: 01/18/20 22:50 alert 54 yo female p/w left flank pain head nct neck supple lungs cta b/l cvs [id number] left flank pain abd nontender skin warm and dry neuro axox3,motor strength 5/5 b/l, no gross focal deficits - Medical Decision Making 01/18/20 22:28 This 54 yo female was diagnosed with a 5 mm x 8 mm stone in the left UVJ on January 06 and then had a left ureteral stent placed the following day. She went back to her linen supervisor last Sunday and had a stent removed. Today she developed some nausea and pain and called her urologist who wanted her to have her urine tested to see if there was a UTI 01/18/20 22:58 Patient does not have any fever or chills She has not been vomiting Her UA is negative for any infection She is still taking her Flomax and Bactrim She will follow-up with Dr. Danielle her urologist
[2020-01-18 22:49] LABS: PH,URINE 5.5 (5.0-8.0); URINE APPEARANCE CLEAR; URINE BILIRUBIN NEGATIVE (NEGATIVE); URINE COLOR YELLOW; URINE GLUCOSE (UA) NEGATIVE (NEGATIVE); URINE KETONE 1+ (NEGATIVE); URINE LEUK ESTERASE NEGATIVE (NEGATIVE); URINE NITRITE NEGATIVE (NEGATIVE); URINE PROTEIN NEGATIVE (NEGATIVE); URINE UROBILINOGEN 0.2 mg/dL (0.2-1.0)
[2020-01-18] MEDS ORDERED: ONDANSETRON 4 MG/2 ML VIAL IVPUSH ONE (22:51)
[2020-01-18] MEDS ORDERED: KETOROLAC TROMETHAMINE 30 MG/1 ML VIAL ONE (22:53)
[2020-01-18] MEDS ORDERED: ONDANSETRON 4 MG/2 ML VIAL ONE (22:53)
[2020-01-18 23:29] VITALS: BP 163/83; PULSE 65
[2020-01-19 00:46] VITALS: TEMP 98
== END 2020-01-19 00:53 | disposition home or self-care (01) ==
LOC: JER 21:37 → SUPCPDRO 21:37 → JER 01-19 00:53
PROC: 3E033GC Introduction of Other Therapeutic Substance into Peripheral Vein, Percutaneous Approach (ICD-10-PCS; principal; 2020-01-18)
PROC: 3E0333Z Introduction of Anti-inflammatory into Peripheral Vein, Percutaneous Approach (ICD-10-PCS; 2020-01-18)
DX: N20.0 Calculus of kidney (principal); Z87.442 Personal history of urinary calculi; E89.2 Postprocedural hypoparathyroidism; Z90.721 Acquired absence of ovaries, unilateral
CPT/HCPCS: 81003; 87086; 99284-25; J7030